=== PATIENT | female | born 1945 | race Caucasian/White ===

== ENCOUNTER → 2016-03-30 | Outpatient (CLI) | payer OTHER | LOC: BMCIMAGING 10:39 | DX: Z12.31 Encounter for screening mammogram for malignant neoplasm of breast (principal); Z80.3 Family history of malignant neoplasm of breast | CPT/HCPCS: G0202 ==

== ENCOUNTER → 2017-04-06 | Outpatient (CLI) | payer OTHER | LOC: BMCIMAGING 13:51 | PROVIDERS: ATTEND Obstetrics & Gynecology Gynecology | DX: Z12.31 Encounter for screening mammogram for malignant neoplasm of breast (principal); Z80.3 Family history of malignant neoplasm of breast ==

== ENCOUNTER → 2018-05-15 | Outpatient (CLI) | payer OTHER | LOC: BMCIMAGING 13:01 | PROVIDERS: ATTEND Obstetrics & Gynecology Gynecology | DX: Z12.31 Encounter for screening mammogram for malignant neoplasm of breast (principal); Z80.3 Family history of malignant neoplasm of breast ==

== ENCOUNTER 2018-06-24 15:01 | Emergency (ER) | payer OTHER ==
--- NOTE | 2018-06-24 15:13 | EDPHY ---
H & P Stated Complaint: FELL OFF HORSE ONTO R HIP/PELVICE AREA Time Seen by Provider: 06/24/18 15:13 - Personal History Current Tetanus/Diphtheria Vaccine: Yes Current Tetanus Diphtheria and Acellular Pertussis (TDAP): Yes Tetanus Vaccine Date: <10 YRS - Medical/Surgical History Hx Asthma: No Hx Chronic Respiratory Disease: No Hx Diabetes: No Hx Cardiac Disease: No Hx Renal Disease: No Hx Cirrhosis: No Hx Alcoholism: No Hx HIV/AIDS: No Hx Splenectomy or Spleen Trauma: No Other PMH: depression. arthritis. thyroid. Bilat hip replacemnts, 2015 - Social History Smoking Status: Never smoked Constitutional: Initial Vital Signs Temperature (C) 37.0 C 06/24/18 15:06 Heart Rate 101 H 06/24/18 15:06 Respiratory Rate 16 06/24/18 15:06 Blood Pressure 135/75 H 06/24/18 15:06 O2 Sat (%) 97 06/24/18 15:06 O2 Delivery Mode Room Air Allergies/Adverse Reactions: ibuprofen [Ibuprofen] Allergy (Intermediate, Verified 06/22/14 14:24) ITCHY, RASH Home Medications: Medication Instructions Recorded AMITRIPTYLINE HCL [Amitriptyline 150 mg PO HS 05/12/14 100 mg] Thyroid,Pork [[place] Thyroid] 30 mg PO DAILY 05/12/14 celeCOXIB [CeleBREX] 200 mg PO 06/22/14 Medical Decision Making - Diagnostics Imaging: Discussed imaging studies w/ bead maker Radiologist, I viewed and interpreted images myself ED Course/Re-evaluation: CHIEF COMPLAINT: Hip pain after falling off of horse HISTORY OF PRESENT ILLNESS: The patient is a 73 y/o female with a history of a bilateral hip replacement complaining of right pelvic/groin pain after falling off her horse today. The patient was wearing a helmet and did not lose consciousness after the fall. She denies nausea, vomiting, or neurological problems. After the fall she was able to walk home, but she did have pain in the inside of her right hip as well as some minor pain between her scapula. No fever, headache, body aches, lightheadedness, chest pain, heart palpitations, shortness of breath, cough, abdominal pain, urinary or bowel complaints, numbness, paresthesias. REVIEW OF SYSTEMS: A comprehensive 10 system review of systems is otherwise negative aside from elements mentioned in the history of present illness and medical decision making. PHYSICAL EXAM: HR, BP, O2 Sat, RR. Temp noted General Appearance: Alert, well hydrated, appropriate, and non-toxic appearing. Head: Atraumatic without scalp tenderness or obvious injury Eyes: Pupils equal, round, reactive to light and accommodation, EOMI, no trauma , no injection. Ears: Clear bilaterally, no perforation, normal landmarks Nose: Atraumatic, no rhinorrhea, clear. Throat: There is no erythema or exudates, no lesions, normal tonsils, mucus membranes moist. Neck: Supple, 2+ carotid upstroke, nontender, no lymphadenopathy. Respiratory: No retractions, no distress, no wheezes, and no accessory muscle use. Lungs are clear to auscultation bilaterally. Cardiovascular: Regular rate and rhythm, no murmurs, rubs, or gallops. Bilateral carotid, radial, dorsalis pedis, and posterior tibial pulses intact. Good capillary refill all extremities. Gastrointestinal: Abdomen is soft, nontender, non-distended, no masses, no rebound, no guarding, no peritoneal signs. Musculoskeletal: Right groin tenderness. Otherwise normal active ROM of all extremities, atraumatic. Neurological: Alert, appropriate, and interactive. The patient has normal DTRs and non-focal cranial nerves, motor, sensory, and cerebellar exam. Skin: No rashes, good turgor, no nodules on palpation. Past medical history: Depression, arthritis Past surgical history: Bilateral hip replacements Family history: Denies Social history: at bedside, lives in [place], employed DIAGNOSTICS/PROCEDURES/CRITICAL CARE TIME: T-spine CT: No acute findings. Pelvic CT: Inferior right rami fracture, non-displaced. DIFFERENTIAL DIAGNOSIS: The differential diagnosis for the patient's trauma included but was not limited to intracranial injury, long bone and pelvic bone fractures, spinal injury, intra-abdominal injury, and intra-thoracic injury. MEDICAL DECISION MAKING: The patient is a 73 y/o female with a history of a bilateral hip replacement complaining of right pelvic/groin pain after falling off her horse today. She did not lose consciousness and denies nausea, vomiting, or neurological problems. After the fall she was able to walk home, but she did have pain in the inside of her right hip as well as some minor pain between her scapula. On exam she has deep left medial hip tenderness. Pelvic CT ordered to identify and occult fracture and t-spine CT ordered to rule out compression fracture. 1620: I spoke with Dr. Amin, radiologist, regarding patient's CT findings. There are no acute findings of the t-spine. The patient does have an inferior right rami fracture that is non-displaced. 1625: Reassessed patient and discussed imaging findings. I have advised her to follow up with her orthopedic surgeon and take Tramadol as prescribed. She will be instructed to use crutches and weight-bear as tolerated. Return precautions provided; patient is comfortable with this plan. Departure - Departure Disposition: Home, Routine, Self-Care Clinical Impression: Fracture of right inferior pubic ramus Qualifiers: Encounter type: initial encounter Fracture type: closed Qualified Code(s): S32.591A - Other specified fracture of right pubis, initial encounter for closed fracture Condition: Good Instructions: Crutch Instructions (ED), Hip Fracture (ED) Additional Instructions: 1. Rest, ice, elevation. 2. Follow up with an orthopedic surgeon within one week. 3. Return to the emergency department for worsening pain, swelling, numbness, weakness or other concerns. 4. Use crutches and weight-bear as tolerated. 5. Take Tramadol as prescribed. Referrals: Brando Villagran MD [Primary Care Provider] - As per Instructions Zhang Carbajal MD [Medical Doctor] - As per Instructions Ammon Zuleta MD [Medical Doctor] - As per Instructions Report Scribed for: Mookie Peterson Report Scribed by: Dianna Che Date of Report: 06/24/18 Time of Report: 15:15
[2018-06-24 16:45] VITALS: BP 139/69
== END 2018-06-24 16:45 | disposition home or self-care (01) ==
DX: S32.591A Other specified fracture of right pubis, initial encounter for closed fracture (principal); V80.010A Animal-rider injured by fall from or being thrown from horse in noncollision accident, initial encounter; Y93.52 Activity, horseback riding; Z96.643 Presence of artificial hip joint, bilateral